=== PATIENT | female | born 1965 | race Two or more races ===

== ENCOUNTER 2020-11-01 13:19 | Emergency (ER) | payer SELFPAY ==
[~2020-11-01] VITALS: Ht 160 cm; Wt 58.1 kg
--- NOTE | 2020-11-01 13:31 | NUR ---
BIB [facility] 39, LEFT ANKLE PAIN/DEFORMITY AFTER SHE SLIPPED/FELL WHILE HIKING AIR SPLINT IN PLACE. PT AAOX4, VSS. RR EVEN & UNLABORED. DENIES CP, SOB, DIZZINESS, N/V AT THIS TIME. AWAITING EVAL BY ANA MARIA.
[2020-11-01] MEDS ORDERED: FENTANYL PF 100MCG/2ML AMPUL ONE (14:46)
[2020-11-01] MEDS ORDERED: LIDOCAINE /MPF 1% VIAL 5 ML VIAL ONE (14:53)
[2020-11-01 15:00] LABS: BASOPHILS % (AUTO) 0.5 % (0.0-2.0); EOSINOPHILS % (AUTO) 1.2 % (0.0-6.0); HEMATOCRIT 43 % (33-45); LYMPHOCYTES # (AUTO) 1.4 /CMM (0.8-4.8); LYMPHOCYTES % (AUTO) 16.7 % (20.0-44.0); MEAN CORPUSCULAR HGB CONC 33 g/dl (31.0-36.0); MEAN CORPUSCULAR VOLUME 95 fL (82-100); MONOCYTES # (AUTO) 0.4 /CMM (0.1-1.30); MONOCYTES % (AUTO) 5.1 % (2.0-12.0); NEUTROPHILS # (AUTO) 6.6 /CMM (1.8-8.9); NEUTROPHILS % (AUTO) 76.5 % (43.0-81.0); PLATELET COUNT (AUTO) 273 /CMM (150-450); RED BLOOD CELL COUNT(AUTO) 4.47 MIL/uL (4.0-5.2); WHITE BLOOD COUNT (AUTO) 8.6 K/uL (4.3-11.0)
[2020-11-01] MEDS ORDERED: LIDOCAINE /MPF 1% VIAL 5 ML VIAL IJ ONE (15:00)
--- NOTE | 2020-11-01 15:00 | NUR ---
DR. REDMAN AT BS FOR LT ANKLE REDUCTION VIA DIGITAL BLOCK.
[2020-11-01 15:08] LABS: CALCIUM, SERUM 9.2 mg/dL (8.5-10.1); CREATININE 0.9 mg/dL (0.6-1.3); POTASSIUM 4.2 mmol/L (3.5-5.1)
[2020-11-01] MEDS ORDERED: NAPR-1164 PO (15:17)
[2020-11-01] MEDS ORDERED: OXYC5TAB3 PO (15:17)
--- NOTE | 2020-11-01 15:48 | NUR ---
Patient discharged to home in stable condition. Written and verbal after care instructions given. Patient verbalizes understanding of instruction. IV removed. Catheter intact and site benign. Pressure and 4x4 applied to site. No bleeding noted.
[2020-11-01 15:49] VITALS: BP 127/85
[2020-11-02] MEDS ORDERED: FENTANYL PF 100MCG/2ML AMPUL IV ONE (12:00)
== END 2020-11-01 15:50 | disposition home or self-care (01) ==
LOC: ER 13:32
DX: S82.852A Displaced trimalleolar fracture of left lower leg, initial encounter for closed fracture (principal); S82.492A Other fracture of shaft of left fibula, initial encounter for closed fracture; W01.0XXA Fall on same level from slipping, tripping and stumbling without subsequent striking against object, initial encounter; Y93.01 Activity, walking, marching and hiking; Y92.89 Other specified places as the place of occurrence of the external cause; Y99.8 Other external cause status
CPT/HCPCS: 27818; 36415; 73590; 73610; 80048; 85025; 85730; 99284; J3010; J3490